=== PATIENT | female | born 1965 | race Caucasian/White ===

== ENCOUNTER 2017-05-01 12:11 | Emergency (ER) | payer BC ==
[~2017-05-01] VITALS: Ht 162.6 cm; Wt 77.4 kg
[2017-05-01] MEDS ORDERED: LISI10TA4 PO (12:18)
[2017-05-01] MEDS ORDERED: amLODIPine 5 MG TAB PO ONE (13:30)
[2017-05-01 13:35] VITALS: BP 153/94
[2017-05-01 13:42] LABS: MEAN CORPUSCULAR HEMOGLOBIN 32.7 pg (27.0-33.0); MEAN CORPUSCULAR HGB CONC 33.7 g/dl (32.0-36.5); MEAN CORPUSCULAR VOLUME 96.9 fl (80.0-96.0); RED CELL DISTRIBUTION WIDTH 13.2 % (11.5-14.5); WHITE BLOOD COUNT 7.1 K/mm3 (4.0-10.0)
[2017-05-01 13:54] LABS: METHADONE URINE NEGATIVE (NEGATIVE)
[2017-05-01 14:06] LABS: ALBUMIN 4.1 GM/DL (3.2-5.2); ALBUMIN/GLOBULIN RATIO 1.24 (1.00-1.93); ALKALINE PHOSPHATASE 48 U/L (45-117); ALT/SGPT 56 U/L (12-78); ANION GAP 4 MEQ/L (8-16); AST/SGOT 26 U/L (15-37); BILIRUBIN,TOTAL 0.4 MG/DL (0.2-1.0); BLOOD UREA NITROGEN 15 MG/DL (7-18); CALCIUM LEVEL 9.8 MG/DL (8.5-10.1); CARBON DIOXIDE LEVEL 32 MEQ/L (21-32); CHLORIDE LEVEL 107 MEQ/L (98-107); CREATININE FOR GFR 0.78 MG/DL (0.55-1.02); GLOMERULAR FILTRATION RATE > 60.0 (>58); GLUCOSE, FASTING 106 MG/DL (70-105); SODIUM LEVEL 143 MEQ/L (136-145); TOTAL PROTEIN 7.4 GM/DL (6.4-8.2)
[2017-05-01] MEDS ORDERED: NORV5TAB PO (14:57)
[2017-05-01 15:08] VITALS: BP 150/98
--- NOTE | 2017-05-01 15:13 | REP ---
CT BRAIN WITHOUT CONTRAST: 05/01/2017 CLINICAL HISTORY: Blurred vision. COMPARISON: No prior study. FINDINGS: Soft tissue and bone windows are reviewed for each slice level. The ventricles are midline, symmetric and without dilatation or displacement. Third and fourth ventricles are unremarkable. Basal ganglia are symmetric and intact. The saleem-white junction differentiation was well maintained. There is no vascular territory infarct, hemorrhage, mass, mass effect or edema. There are some dural calcifications near the vertex. The brainstem is grossly intact cerebellum without acute finding. No posterior fossa hemorrhage or mass. Basal cisterns intact. The mastoids and sinuses are clear. The skull base and calvarium show no fracture or focal lesion. That portion of orbits included are unremarkable. IMPRESSION: 1. No intracranial hemorrhage, acute infarct, edema, mass or white matter tract abnormality. 2. Visualized sinuses, mastoids, skull base and calvarium are all unremarkable. 3. Basal cisterns intact. Basal ganglia unremarkable. Signed by Devon Tucker MD 05/01/2017 08:10 P
--- NOTE | 2017-05-01 15:16 | REP ---
CT NECK WITHOUT CONTRAST: 05/01/2017 CLINICAL HISTORY: Blurred vision. TECHNIQUE: Axial soft tissue windows with coronal and sagittal reconstructions provided. Bone windows are also reviewed. No prior examination. FINDINGS: The base of the brain and skull base are grossly intact. The maxillary, ethmoid, sphenoid, frontal sinuses and ring of C1 all unremarkable. The mandible is seen and also intact throughout. The maxillary alveolar ridge was likewise normal. The soft tissues in the neck including the parotid, submandibular glands. Tongue base, anterior and posterior cervical chain nodes and thyroid lobes are symmetric and unremarkable. Anterior and posterior strap muscles unremarkable. The sagittal reconstruction shows slight loss of lordosis but no kyphosis, disc space narrowing, compression deformity or destructive lesion. The dens is intact and its relationship to the anterior arch and lateral masses of C1 normal on all projections. No central canal stenosis or evidence of foraminal encroachment at any level in the cervical and upper thoracic spine. No anterior or posterior cervical chain adenopathy. The lung apices are clear. The upper thoracic vertebral levels and portions of the first five rib pairs as well as medial clavicles and scapula are all unremarkable. IMPRESSION: 1. Negative CT soft tissue neck for the asymmetry in the soft tissues, mass, adenopathy or acute bony finding. No compression deformity or malalignment. No prevertebral swelling, adenopathy, airway compromise or other acute finding. Lung apices and upper ribs visible intact. Signed by Devon Tucker MD 05/01/2017 08:10 P
--- NOTE | 2017-05-01 15:19 | REP ---
CHEST PA AND LATERAL: 05/01/2017 CLINICAL HISTORY: Chest pain. COMPARISON: 12/07/2015 FINDINGS: Lungs adequately inflated. There is no pleural effusion, lateral pleural thickening, apical scar or pneumothorax. Epicardial fat pad along the left heart border again seen. No effusion, infiltrate or mass. No pneumothorax or pneumomediastinum. Heart not enlarged. There is no vascular redistribution or edema. The aorta is normal. Airway intact. Bony thorax shows some mild levoconvex curve mid and lower thoracic region without compression deformity. No free air. IMPRESSION: 1. No acute infiltrate, cardiomegaly, edema or other acute finding. Epicardial fat pad adjacent left heart border. No pneumothorax or pneumomediastinum. Stable chest. Signed by Devon Tucker MD 05/01/2017 08:11 P
--- NOTE | 2017-05-01 16:37 | ECGEPIP ---
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
[2017-09-06] MEDS ORDERED: PROT20TA11 PO (14:39)
[2017-09-06] MEDS ORDERED: LEXA1TAB2 PO (14:39)
[2017-09-09] MEDS ORDERED: ACET-683 PO (11:35)
== END 2017-05-01 15:15 | disposition home or self-care (01) ==
LOC: M ED 13:43
DX: M54.2 Cervicalgia (principal); I10 Essential (primary) hypertension; Z79.899 Other long term (current) drug therapy

== ENCOUNTER → 2017-06-14 | Outpatient (CLI) | payer BC ==
[~2017-06-14] MED LIST: ACET-683 PO; LEXA1TAB2 PO; LISI10TA4 PO; NORV5TAB PO; PROT20TA11 PO
[2017-06-14 13:29] LABS: ALBUMIN 4.1 GM/DL (3.2-5.2); ALBUMIN/GLOBULIN RATIO 1.46 (1.00-1.93); ALKALINE PHOSPHATASE 44 U/L (45-117); ALT/SGPT 34 U/L (12-78); ANION GAP 9 MEQ/L (8-16); AST/SGOT 14 U/L (15-37); BILIRUBIN,TOTAL 0.4 MG/DL (0.2-1.0); BLOOD UREA NITROGEN 25 MG/DL (7-18); CALCIUM LEVEL 9.1 MG/DL (8.5-10.1); CARBON DIOXIDE LEVEL 28 MEQ/L (21-32); CHLORIDE LEVEL 106 MEQ/L (98-107); CHOLESTEROL LEVEL 172 MG/DL (<200); CREATININE FOR GFR 0.85 MG/DL (0.55-1.02); GLOMERULAR FILTRATION RATE > 60.0 (>58); GLUCOSE, FASTING 96 MG/DL (70-105); POTASSIUM SERUM 4.8 MEQ/L (3.5-5.1); SODIUM LEVEL 143 MEQ/L (136-145); TOTAL PROTEIN 6.9 GM/DL (6.4-8.2); TRIGLYCERIDES LEVEL 132 MG/DL (<150)
== END ==
LOC: M WUC 08:29
PROVIDERS: ATTEND Nurse Practitioner Family
DX: I10 Essential (primary) hypertension (principal); F32.89 Other specified depressive episodes

== ENCOUNTER → 2017-08-15 | Outpatient (REF) | payer BC | LOC: M SFHCPLAZ 13:33 | PROVIDERS: ATTEND Nurse Practitioner Family | DX: R19.7 Diarrhea, unspecified (principal) ==

== ENCOUNTER → 2017-08-18 | Outpatient (REF) | payer BC | LOC: M SFHCWAGY 08:56 | PROVIDERS: ATTEND Nurse Practitioner Women's Health | DX: Z12.4 Encounter for screening for malignant neoplasm of cervix (principal) ==

== ENCOUNTER → 2017-08-18 | Outpatient (CLI) | payer BC ==
--- NOTE | 2017-08-18 11:04 | REP ---
BILATERAL SCREENING DIGITAL MAMMOGRAM: There are no palpable abnormalities or other breast complaints. The patient states she/he had a clinical breast exam in August 2017. Comparison is 03/21/2010. There is very dense breast parenchyma in the subareolar zones. This can decrease sensitivity of the mammogram. The breast parenchyma is otherwise mildly dense. There has been no interval development of masses, areas of structural distortion or clusters of microcalcifications typical of malignancy. IMPRESSION: There is no evidence of malignancy. The patient should have a repeat mammogram in 1 year. This mammogram was interpreted with the aid of an FDA-approved computer-aided detection system. A. Negative x-ray reports should not delay biopsy if a dominant or clinically suspicious mass is present. B. Four to eight percent of cancers are not identified by x-ray. C. Adenosis and dense breasts may obscure an underlying neoplasm. The patient letter M1 dense breasts.
== END ==
LOC: M WHC 08:22
PROVIDERS: ATTEND Nurse Practitioner Women's Health
DX: Z12.31 Encounter for screening mammogram for malignant neoplasm of breast (principal)

== ENCOUNTER 2017-12-28 11:26 | Emergency (ER) | payer BC ==
[2017-12-28] MEDS: NS 1,000 ML IV ×2 (12:39)
[2017-12-28 12:54] LABS: BASO % 0.3 % (0.0-1.0); EOS # 0.1 10^3/uL (0.0-0.50); EOS % 1.2 % (0.0-3.0); HEMATOCRIT 40.8 % (36.0-47.0); HEMOGLOBIN 13.5 g/dl (12.0-16.0); IMMATURE GRANULOCYTE % 0.5 % (0-3.0); LYMPH # 2.1 10^3/uL (1.5-4.5); MEAN CORPUSCULAR HGB CONC 33.1 g/dl (32.0-36.5); MEAN CORPUSCULAR VOLUME 96.7 fl (80.0-96.0); MONO # 0.6 10^3/uL (0.0-0.8); MONO % 6.5 % (0.0-5.0); NEUTROPHILS # 6.6 10^3/uL (1.8-7.7); NEUTROPHILS % 69.5 % (36.0-66.0); PLATELET COUNT, AUTOMATED 286 10^3/uL (150-450); RED BLOOD COUNT 4.22 10^6/uL (4.00-5.40); WHITE BLOOD COUNT 9.4 10^3/uL (4.0-10.0)
[2017-12-28 12:59] LABS: ALBUMIN 4.3 GM/DL (3.2-5.2); ALBUMIN/GLOBULIN RATIO 1.05 (1.00-1.93); ALKALINE PHOSPHATASE 54 U/L (45-117); ALT/SGPT 46 U/L (12-78); ANION GAP 7 MEQ/L (8-16); AST/SGOT 25 U/L (7-37); BILIRUBIN,TOTAL 0.3 MG/DL (0.2-1.0); BLOOD UREA NITROGEN 14 MG/DL (7-18); C REACTIVE PROTEIN QUANTITATIV 1.94 MG/DL (0.00-0.30); CALCIUM LEVEL 9.2 MG/DL (8.5-10.1); CARBON DIOXIDE LEVEL 24 MEQ/L (21-32); CHLORIDE LEVEL 107 MEQ/L (98-107); CREATININE FOR GFR 0.84 MG/DL (0.55-1.30); GLOMERULAR FILTRATION RATE > 60.0 (>51); GLUCOSE, FASTING 91 MG/DL (70-100); POTASSIUM SERUM 4.1 MEQ/L (3.5-5.1); SODIUM LEVEL 138 MEQ/L (136-145); TOTAL PROTEIN 8.4 GM/DL (6.4-8.2)
[2017-12-28] MEDS ORDERED: ISOVUE-370 76% 100ML VIAL (Q9967) As Ordered ×2 (13:29)
[2017-12-28 14:25] LABS: APPEARANCE, URINE HAZY (CLEAR); BACTERIA, URINE AUTO 1+ (NEGATIVE); BILIRUBIN, URINE AUTO NEGATIVE (NEGATIVE); BLOOD, URINE BLOOD NEGATIVE (NEGATIVE); COLOR, URINE YELLOW (YELLOW); GLUCOSE, URINE (UA) AUTO NEGATIVE (NEGATIVE); KETONE, URINE AUTO NEGATIVE (NEGATIVE); LEUKOCYTE ESTERASE, URINE AUTO NEGATIVE (NEGATIVE); MUCUS, URINE SMALL (NEGATIVE); NITRITE, URINE AUTO NEGATIVE (NEGATIVE); PROTEIN, URINE AUTO NEGATIVE (NEGATIVE); RBC, URINE AUTO 0 /HPF (0-3); SQUAMOUS EPITHELIAL CELL UR AU 1 /HPF (0-6); UROBILINOGEN, URINE AUTO 0.2 mg/dL (0.0-2.0); WBC, URINE AUTO 1 /HPF (0-3)
== END 2017-12-28 15:32 | disposition home or self-care (01) ==
LOC: M ED 11:26
DX: K52.9 Noninfective gastroenteritis and colitis, unspecified (principal); I10 Essential (primary) hypertension; F33.9 Major depressive disorder, recurrent, unspecified; Z79.899 Other long term (current) drug therapy
CPT/HCPCS: Q9967

== ENCOUNTER → 2018-05-09 | Outpatient (CLI) | payer BC ==
[2018-05-09 18:01] LABS: BASO # 0.1 10^3/uL (0.0-0.2); BASO % 0.6 % (0.0-1.0); EOS # 0.1 10^3/uL (0.0-0.50); EOS % 1.5 % (0.0-3.0); HEMATOCRIT 40.3 % (36.0-47.0); HEMOGLOBIN 13.2 g/dl (12.0-15.5); IMMATURE GRANULOCYTE % 0.2 % (0-3.0); LYMPH # 2.5 10^3/uL (1.5-4.5); LYMPH % 30.2 % (24.0-44.0); MEAN CORPUSCULAR HGB CONC 32.8 g/dl (32.0-36.5); MEAN CORPUSCULAR VOLUME 97.8 fl (80.0-96.0); MONO # 0.5 10^3/uL (0.0-0.8); MONO % 6.5 % (0.0-5.0); NEUTROPHILS # 4.9 10^3/uL (1.8-7.7); PLATELET COUNT, AUTOMATED 317 10^3/uL (150-450); RED BLOOD COUNT 4.12 10^6/uL (4.00-5.40); RED CELL DISTRIBUTION WIDTH 13.2 % (11.5-14.5); WHITE BLOOD COUNT 8.1 10^3/uL (4.0-10.0)
[2018-05-09 18:28] LABS: HEMATOCRIT 40.9 % (36.0-47.0)
[2018-05-09 18:37] LABS: THYROGLOBULIN ANTIBODY 20.4 U/ML (<60.0); THYROID PEROXIDASE ANTIBODY < 28.0 U/ML (<60.0); TOTAL 25(OH) VITAMIN D 20.2 NG/ML (30.0-100.0)
[2018-05-09 18:38] LABS: VITAMIN B12 LEVEL 368 PG/ML (247-911)
[2018-05-09 18:45] LABS: ALBUMIN 4.1 GM/DL (3.2-5.2); ALBUMIN/GLOBULIN RATIO 1.17 (1.00-1.93); ALKALINE PHOSPHATASE 50 U/L (45-117); ALT/SGPT 35 U/L (12-78); ANION GAP 9 MEQ/L (8-16); AST/SGOT 15 U/L (7-37); BILIRUBIN,TOTAL 0.4 MG/DL (0.2-1.0); BLOOD UREA NITROGEN 21 MG/DL (7-18); CARBON DIOXIDE LEVEL 27 MEQ/L (21-32); CHLORIDE LEVEL 105 MEQ/L (98-107); CREATININE FOR GFR 0.87 MG/DL (0.55-1.30); FREE T3 2.9 PG/ML (2.2-4.0); GLOMERULAR FILTRATION RATE > 60.0 (>51); GLUCOSE, FASTING 93 MG/DL (70-100); IRON (FE) 77 UG/DL (50-170); PERCENT SATURATION 24.7 % (13.2-45.0); POTASSIUM SERUM 4.2 MEQ/L (3.5-5.1); SODIUM LEVEL 141 MEQ/L (136-145); TOTAL IRON BINDING CAPACITY 312 UG/DL (250-450); TOTAL PROTEIN 7.6 GM/DL (6.4-8.2)
[2018-05-10 10:21] LABS: PRETREATED FOLATE FOR RBCFOL 13.7 NG/ML; RBC FOLATE 703.4 NG/ML (280-791)
[2018-05-18 00:09] LABS: T3 REVERSE 14.1 ng/dL (9.2-24.1)
[2018-05-18 00:09] LABS: MAGNESIUM RBC LEVEL 6.8 mg/dL (4.2-6.8); Methylmalonic Acid 215 nmol/L (0-378); TISSUE TRANSGLUTAMINASE IgA <2 U/mL (0-3); TISSUE TRANSGLUTAMINASE IgG <2 U/mL (0-5); UNITSIGA FOR GLIADIN IGA 6 units (0-19); UNITSIGG FOR GLIADIN IGG 4 units (0-19)
== END ==
LOC: M WUC 12:11
DX: F34.1 Dysthymic disorder (principal); K59.1 Functional diarrhea
CPT/HCPCS: 83550

== ENCOUNTER 2019-06-28 06:30 | Outpatient (RCR) | payer BC ==
[~2019-06-28 06:30] MED LIST changes: +CIPR-249 PO; +FLAG500T PO
== END 2019-07-08 ==
LOC: M OT 06:30
PROVIDERS: ATTEND Nurse Practitioner Family
DX: Z51.89 Encounter for other specified aftercare (principal); M79.645 Pain in left finger(s)

== ENCOUNTER → 2020-09-12 | Outpatient (REF) | payer BC ==
[2020-09-12 14:45] LABS: ALBUMIN 4.2 GM/DL (3.2-5.2); ALT/SGPT 22 U/L (12-78); BILIRUBIN,TOTAL 0.5 MG/DL (0.2-1.0); BLOOD UREA NITROGEN 20 MG/DL (7-18); CALCIUM LEVEL 9.6 MG/DL (8.5-10.1); CARBON DIOXIDE LEVEL 32 MEQ/L (21-32); CHLORIDE LEVEL 103 MEQ/L (98-107); CHOLESTEROL LEVEL 223 MG/DL (<200); CHOLESTEROL RISK RATIO 2.686 (<5); CREATININE FOR GFR 0.88 MG/DL (0.55-1.30); FREE T4 1.01 NG/DL (0.76-1.46); GLOMERULAR FILTRATION RATE > 60.0 (>51); GLUCOSE, FASTING 102 MG/DL (70-100); HDL CHOLESTEROL 83 MG/DL (>40); LDL CHOLESTEROL 115 MG/DL (<100); NON-HDL-C 140 MG/DL; POTASSIUM SERUM 5.6 MEQ/L (3.5-5.1); SODIUM LEVEL 137 MEQ/L (136-145); TOTAL 25(OH) VITAMIN D 34.4 NG/ML (30.0-100.0); TOTAL PROTEIN 7.2 GM/DL (6.4-8.2); TRIGLYCERIDES LEVEL 124 MG/DL (<150)
[2020-09-12 14:49] LABS: CREATININE, URINE 66.2 MG/DL; MALB URINE SIEMENS 7.2 MG/L; MAU/CREAT RATIO 10.8 MCG/MG (0.0-30.0)
== END ==
LOC: M SFHCPLAZ 09:15
PROVIDERS: ATTEND Nurse Practitioner Family
DX: I10 Essential (primary) hypertension (principal); F32.89 Other specified depressive episodes; E55.9 Vitamin D deficiency, unspecified

== ENCOUNTER → 2020-09-19 | Outpatient (REF) | payer BC ==
[2020-09-19 18:10] LABS: BLOOD UREA NITROGEN 21 MG/DL (7-18); CALCIUM LEVEL 9.4 MG/DL (8.5-10.1); CARBON DIOXIDE LEVEL 28 MEQ/L (21-32); CHLORIDE LEVEL 103 MEQ/L (98-107); CREATININE FOR GFR 0.95 MG/DL (0.55-1.30); GLOMERULAR FILTRATION RATE > 60.0 (>51); GLUCOSE, FASTING 91 MG/DL (70-100); POTASSIUM SERUM 4.6 MEQ/L (3.5-5.1); SODIUM LEVEL 138 MEQ/L (136-145)
== END ==
LOC: M PLALAB 14:21
PROVIDERS: ATTEND Nurse Practitioner Family
DX: E87.5 Hyperkalemia (principal)

== ENCOUNTER → 2021-05-15 | Outpatient (REF) | payer BC ==
[~2021-05-15] MED LIST changes: +LISI10TA22 PO; -LISI10TA4 PO
[2021-05-15 17:55] LABS: BLOOD UREA NITROGEN 26 MG/DL (7-18); CALCIUM LEVEL 9.9 MG/DL (8.5-10.1); CARBON DIOXIDE LEVEL 26 MEQ/L (21-32); CHLORIDE LEVEL 109 MEQ/L (98-107); CREATININE FOR GFR 0.74 MG/DL (0.55-1.30); GLOMERULAR FILTRATION RATE > 60.0 (>51); GLUCOSE, FASTING 87 MG/DL (70-100); POTASSIUM SERUM 4.9 MEQ/L (3.5-5.1); SODIUM LEVEL 143 MEQ/L (136-145); TOTAL 25(OH) VITAMIN D 20.6 NG/ML (30.0-100.0)
== END ==
LOC: M SFHCPLAZ 05-14 16:44 → M PLALAB 16:44
PROVIDERS: ATTEND Nurse Practitioner Family
DX: E55.9 Vitamin D deficiency, unspecified (principal); I10 Essential (primary) hypertension

== ENCOUNTER → 2021-10-24 | Outpatient (CLI) | payer BC | LOC: M WUC 13:14 | PROVIDERS: ATTEND Physician Assistant | DX: S63.691A Other sprain of left index finger, initial encounter (principal); M79.671 Pain in right foot; X58.XXXA Exposure to other specified factors, initial encounter; Y92.9 Unspecified place or not applicable ==

== ENCOUNTER → 2023-01-09 | Outpatient (REF) | payer BC | LOC: M LAB REF 17:00 | PROVIDERS: ATTEND Physician Assistant Medical | DX: J02.9 Acute pharyngitis, unspecified (principal) ==

== ENCOUNTER → 2023-07-27 | Outpatient (REF) | payer BC ==
[2023-07-29 17:08] LABS: ENDOMYSIAL ABY IgA Negative (Negative); TISSUE TRANSGLUTAMINASE IgA <2 U/mL (0-3)
== END ==
LOC: M LAB REF 12:07
PROVIDERS: ATTEND Internal Medicine
DX: R19.7 Diarrhea, unspecified (principal)

== ENCOUNTER → 2023-07-30 | Outpatient (CLI) | payer BC | LOC: M RAD 08:22 | PROVIDERS: ATTEND Internal Medicine | DX: K82.8 Other specified diseases of gallbladder (principal) ==

== ENCOUNTER 2024-07-18 17:29 | Emergency (ER) | payer SELFPAY ==
[~2024-07-18] VITALS: Ht 165.1 cm; Wt 73.2 kg
[2024-07-18 17:30] VITALS: TEMP 97.8
[2024-07-18 22:19] VITALS: BP 199/106
[2024-07-18] MEDS: amLODIPine 5 MG TAB PO ONE (22:19)
[2024-07-18] MEDS: METOCLOPRAMIDE INJ 10MG/2ML VIAL IV ONE (22:20)
[2024-07-18] MEDS: ACETAMINOPHEN *IV* 1,000 MG in IV 1 EA IV ONE (22:20)
[2024-07-18 22:33] LABS: BASO % 0.5 % (0.0-1.0); EOS # 0.1 10^3/uL (0.0-0.5); EOS % 1.5 % (0.0-3.0); HEMATOCRIT 39.8 % (36.0-47.0); HEMOGLOBIN 12.9 g/dl (12.0-15.5); LYMPH # 2.7 10^3/uL (1.5-5.0); LYMPH % 34.6 % (24.0-44.0); MEAN CORPUSCULAR HEMOGLOBIN 31.7 pg (27.0-33.0); MEAN CORPUSCULAR HGB CONC 32.4 g/dl (32.0-36.5); MEAN CORPUSCULAR VOLUME 97.8 fl (80.0-96.0); MONO # 0.5 10^3/uL (0.0-0.8); MONO % 5.8 % (2.0-8.0); NEUTROPHILS # 4.5 10^3/uL (1.5-8.5); NEUTROPHILS % 57.5 % (36.0-66.0); PLATELET COUNT, AUTOMATED 285 10^3/uL (150-450); RED BLOOD COUNT 4.07 10^6/uL (4.00-5.40); WHITE BLOOD COUNT 7.8 10^3/uL (4.0-10.0)
[2024-07-18 22:46] LABS: INR 0.98; PARTIAL THROMBOPLASTIN TIME 26.2 SECONDS (24.8-34.2); PROTHROMBIN TIME 12.7 SECONDS (12.5-14.5)
[2024-07-18 22:55] LABS: ALBUMIN 4.3 G/DL (3.2-5.2); ALKALINE PHOSPHATASE 44 U/L (46-116); ALT/SGPT 32 U/L (7.0-40); AST/SGOT 15 U/L (<34); BILIRUBIN,TOTAL 0.5 MG/DL (0.3-1.2); BLOOD UREA NITROGEN 25 MG/DL (9-23); CALCIUM LEVEL 10.3 MG/DL (8.5-10.1); CARBON DIOXIDE LEVEL 29 MMOL/L (20-31); CHLORIDE LEVEL 106 MMOL/L (98-107); CREATININE FOR GFR 0.72 MG/DL (0.55-1.30); GLOMERULAR FILTRATION RATE > 60.0 (>51); GLUCOSE, FASTING 96 MG/DL (60-100); MAGNESIUM LEVEL 2.2 MG/DL (1.8-2.4); POTASSIUM SERUM 4.8 MMOL/L (3.5-5.1); SODIUM LEVEL 140 MMOL/L (136-145); TOTAL PROTEIN 7.5 G/DL (5.7-8.2)
[2024-07-18] MEDS ORDERED: ISOVUE-370 76% 100ML VIAL As Ordered ONE (23:12)
[2024-07-18 23:13] LABS: RSV AMPLIFICATION NEGATIVE (NEGATIVE)
[2024-07-19] MEDS ORDERED: NORV5TAB PO (00:40)
[2024-07-19] MEDS ORDERED: ACET-683 PO (00:40)
[2024-07-19 00:47] VITALS: BP 159/80; O2SAT 98
== END 2024-07-19 01:11 | disposition home or self-care (01) ==
LOC: M ED 17:29
DX: R51.9 Headache, unspecified (principal); I10 Essential (primary) hypertension; F32.A Depression, unspecified; F10.10 Alcohol abuse, uncomplicated; Z79.1 Long term (current) use of non-steroidal anti-inflammatories (NSAID); Z79.899 Other long term (current) drug therapy
CPT/HCPCS: 36415; 70450; 70496; 70498; 80053; 83735; 85025; 85610; 85730; 87631; 93005; 93041; 96374; 96375; 99284; J0131; J2765; Q9967